=== PATIENT | female | born 1945 ===

== ENCOUNTER 2018-08-22 13:00 | Inpatient (IN) | payer OTHER ==
[~2018-08-22] VITALS: Ht 152.4 cm; Wt 68.5 kg
[2018-08-25] MEDS ORDERED: ENALAPRIL MALEA20 MG PO (09:26)
[2018-08-25] MEDS ORDERED: ZANTAC300 MG PO (09:26)
[2018-08-25] MEDS ORDERED: FOLIC ACID1 MG PO (09:27)
[2018-08-25] MEDS ORDERED: METHOTREXATE2.5 MG PO (09:28)
[2018-08-25] MEDS ORDERED: TOPROL XL25 MG PO (09:28)
[2018-08-25] MEDS ORDERED: ALDACTONE25 MG PO (09:28)
[2018-08-28] MEDS ORDERED: XARELTO10 MG PO (14:29)
[2018-08-28] MEDS ORDERED: INTEGRA PLUS C1 EACH PO (14:29)
[2018-08-28] MEDS ORDERED: OXYC1TAB9 PO (14:29)
== END 2018-08-28 18:55 | DRG 470 ==
LOC: O/R 08-25 09:01 → SURH 08-25 09:01
PROVIDERS: ADMIT Orthopaedic Surgery Sports Medicine
PROC: 0SRC0J9 Replacement of Right Knee Joint with Synthetic Substitute, Cemented, Open Approach (ICD-10-PCS; principal; 2018-08-25 10:00)
DX: M17.11 Unilateral primary osteoarthritis, right knee (principal); I10 Essential (primary) hypertension; M06.89 Other specified rheumatoid arthritis, multiple sites